=== PATIENT | male | born 1970 | race Caucasian/White ===

== ENCOUNTER → 2020-12-11 18:29 | Outpatient (CLI) | payer MEDICARE ==
[2020-11-05 08:57] VITALS: BMI 25.0
[~2020-12-11 18:29] MED LIST: ADDERALL 30 MG30 MG PO; BYSTOLIC20 MG PO; COZAAR100 MG PO; NORVASC2.5 MG PO; VOLTAREN75 MG
== END | disposition home or self-care (01) ==
LOC: D.LABREF 18:29
PROVIDERS: ATTEND Nurse Practitioner
DX: Z48.01 Encounter for change or removal of surgical wound dressing (principal)